=== PATIENT | female | born 1940 | race Caucasian/White ===

== ENCOUNTER 2022-02-03 01:19 | Emergency (ER) | payer MEDICARE, BC ==
[~2022-02-03] VITALS: Ht 157.5 cm; Wt 40.4 kg
[~2022-02-03 01:19] MED LIST: AMBIEN; THYROID
--- NOTE | 2022-02-03 01:49 | NUR ---
Dr Coley into eval patient.
--- NOTE | 2022-02-03 01:51 | NUR ---
Patient refusing to take pain medication at this time.
[2022-02-03] MEDS ORDERED: ONDANSETRON 4 MG/2 ML VIAL IV ONE ×3 (02:15→12:45)
[2022-02-03] MEDS ORDERED: HYDROMORPHONE 1 MG/1 ML DISP.SYRIN IV ONE ×4 (02:15→12:45)
--- NOTE | 2022-02-03 02:25 | NUR ---
Dr. Coley speaking with Dr. Devon Benavides.
[2022-02-03] MEDS ORDERED: HYDROMORPHONE 1 MG/1 ML DISP.SYRIN ONE ×4 (02:38→13:11)
[2022-02-03] MEDS ORDERED: ONDANSETRON 4 MG/2 ML VIAL ONE ×3 (02:38→13:12)
[2022-02-03 03:29] LABS: CARBON DIOXIDE 27 mmol/L (21-32); CHLORIDE 107 mmol/L (98-107); CREATININE 0.7 mg/dL (0.6-1.3); GLUCOSE 141 mg/dL (74-106); HEMATOCRIT 35.9 % (31.2-41.9); MEAN CORPUSCULAR VOLUME 82.5 fL (75.5-95.3); PLATELET COUNT (AUTO) 277 K/uL (179-408); POTASSIUM 3.5 mmol/L (3.5-5.1); UREA NITROGEN, BLOOD 21 mg/dL (7-18)
[2022-02-03 03:35] LABS: ALANINE AMINOTRANSFERASE 19 U/L (14-59); ALKALINE PHOSPHATASE 87 U/L (50-136); ASPARTATE AMINOTRANSFERASE 15 U/L (15-37); BILIRUBIN,DIRECT < 0.1 mg/dL (0.0-0.2); BILIRUBIN,TOTAL 0.2 mg/dL (0.2-1.0); TOTAL PROTEIN, SERUM 6.7 g/dL (6.4-8.2)
[2022-02-03] MEDS ORDERED: LEVO25TA2 PO (03:41)
--- NOTE | 2022-02-03 04:50 | NUR ---
Kentrell (significant other)
--- NOTE | 2022-02-03 08:08 | NUR ---
PT MEDICATED FOR PAIN PER MD ORDER WITH DILAUDID 0.5MG IV; WASTED 0.5MG FROM THE 1 MG VIAL - WITNESSES BY ALIA PERES.
--- NOTE | 2022-02-03 08:24 | NUR ---
MEDICATED FOR PAIN PER MD ORDER,
--- NOTE | 2022-02-03 10:02 | NUR ---
Spoke to Rolan ROJO in [facility] transfer center, No beds yet. Notified dr Prisca davis regarding this.
--- NOTE | 2022-02-03 16:10 | NUR ---
[facility] provided bed for pt. transfer by [facility] ETA [id number].
--- NOTE | 2022-02-03 17:25 | NUR ---
chemical compounder helper arrived and are at the bedside. Report given to Facility and spoke to Evelin ROJO.
--- NOTE | 2022-02-03 17:36 | NUR ---
Pt left [facility] via [facility] in stable condition, all belongings sent w/ pt.
== END 2022-02-03 17:36 | disposition short-term general hospital (02) ==
LOC: ER 01:22
DX: S72.142A Displaced intertrochanteric fracture of left femur, initial encounter for closed fracture (principal); W18.09XA Striking against other object with subsequent fall, initial encounter; Y93.41 Activity, dancing; Y92.89 Other specified places as the place of occurrence of the external cause; Z88.0 Allergy status to penicillin; Z88.2 Allergy status to sulfonamides; Z20.822 Contact with and (suspected) exposure to COVID-19
CPT/HCPCS: 36415; 71045; 72170; 80048; 80076; 85025; 85730; 87426; 96374; 96375; 96376; 99285; J1170 ×4; J2405 ×3; A4663